=== PATIENT | female | born 1980 | race Caucasian/White ===

== ENCOUNTER 2017-06-13 14:41 | Emergency (ER) | payer OTHER, BC ==
--- NOTE | 2017-06-13 15:04 | Emergency Department Record ---
History of Present Illness - General Chief complaint: Female Urogenital Problem Stated complaint: CRAMPING/VAGINAL BLEEDING Source: Patient, Family () - History of Present Illness Initial comments: The patient had a uterine ablation last December with Dr. Gutierrez. Since then she has not menstruated. 06-11-17 she began having menstrual cramping. 06-12-17 she began to have a "light day" amount of very dark vaginal bleeding, almost black. She took motrin around 11 a.m. and the pain decreased from 8-9/10 down to 2/ 10 which it is now. She states she has never been anemic from this, and has not needed iron for the past 2 years. She is quite comfortable currently. She denies f,c,n,v,d,flank pain, or other emergent problems. MD Complaint: Vaginal bleeding - Related Data Home Medications Medication Instructions Recorded Confirmed Last Taken Apremilast [Otezla] 30 mg PO ASDIR 06/13/17 06/13/17 06/13/17 Duloxetine HCl [Cymbalta] 30 mg PO DAILY 06/13/17 06/13/17 06/13/17 Glipizide [Glipizide ER] 2.5 mg PO ASDIR 06/13/17 06/13/17 06/13/17 Metformin HCl [Metformin HCl ER] 1,000 mg PO BID 06/13/17 06/13/17 06/13/17 Allergies Allergy/AdvReac Type Severity Reaction Status Date / Time cephalexin [From Keflex] Allergy PT UNSURE Verified 06/13/17 14:58 OF REACTION shellfish derived Allergy PT UNSURE Verified 06/13/17 14:58 OF REACTION cefdinir AdvReac DIARRHEA Verified 06/13/17 15:01 Review of Systems Reviewed: No additional complaints except as noted below Constitutional: Reports: As per HPI. Denies: Chills, Fever, Malaise, Night sweats, Weakness, Weight change Eyes: Reports: As per HPI. Denies: Eye discharge, Eye pain, Photophobia, Vision change ENT: Reports: As per HPI. Denies: Congestion, Dental pain, Ear pain, Epistaxis , Hearing loss, Throat pain Respiratory: Reports: As per HPI. Denies: Cough, Dyspnea, Hemoptysis, Stridor, Wheezes Cardiovascular: Reports: As per HPI. Denies: Arrhythmia, Chest pain, Dyspnea on exertion, Edema, Murmurs, Orthopnea, Palpitations, Paroxysmal nocturnal dyspnea, Rheumatic Fever, Syncope Endocrine: Reports: As per HPI. Denies: Fatigue, Heat or cold intolerance, Polydipsia, Polyuria Gastrointestinal: Reports: As per HPI. Denies: Abdominal pain, Constipation, Diarrhea, Hematemesis, Hematochezia, Melena, Nausea, Vomiting Genitourinary: Reports: As per HPI. Denies: Abnormal menses, Discharge, Dyspareunia, Dysuria, Frequency, Hematuria, Incontinence, Retention, Urgency Musculoskeletal: Reports: As per HPI. Denies: Arthralgia, Back pain, Gout, Joint swelling, Myalgia, Neck pain Skin: Reports: As per HPI. Denies: Bruising, Change in color, Change in hair/ nails, Lesions, Pruritus, Rash Neurological: Reports: As per HPI. Denies: Abnormal gait, Confusion, Headache, Numbness, Paresthesias, Seizure, Tingling, Tremors, Vertigo, Weakness Psychiatric: Reports: As per HPI. Denies: Anxiety, Auditory hallucinations, Depression, Homicidal thoughts, Suicidal thoughts, Visual hallucinations Hematological/Lymphatic: Reports: As per HPI. Denies: Anemia, Blood Clots, Easy bleeding, Easy bruising, Swollen glands Physical Exam - General General Appearance: Alert, Oriented x3, Cooperative, No acute distress - Head Head exam: Normal inspection - Eye Eye exam: Normal appearance, PERRL Pupils: Normal accommodation - ENT ENT exam: Normal exam, Mucous membranes moist, Normal external ear exam, Normal orophraynx, TM's normal bilaterally Ear exam: Normal external inspection. negative: External canal tenderness Nasal Exam: Normal inspection. negative: Discharge, Sinus tenderness Mouth exam: Normal external inspection, Tongue normal Teeth exam: Normal inspection. negative: Dental caries Throat exam: Normal inspection. negative: Tonsillar erythema, Tonsillar exudate - Neck Neck exam: Normal inspection, Full ROM. negative: Tenderness - Respiratory Respiratory exam: Normal lung sounds bilaterally. negative: Respiratory distress - Cardiovascular Cardiovascular Exam: Normal rhythm, Normal heart sounds, Tachycardia - GI/Abdominal GI/Abdominal exam: Soft, Normal bowel sounds, Other (uncomfortable suprpubic region on palpation, "crampy"). negative: Tenderness - Rectal Rectal exam: Deferred - exam: Deferred - Extremities Extremities exam: Normal inspection, Full ROM, Normal capillary refill. negative: Tenderness - Back Back exam: Reports: Normal inspection, Full ROM. Denies: Muscle spasm, Rash noted, Tenderness - Neurological Neurological exam: Alert, Normal gait, Oriented X3, Reflexes normal - Psychiatric Psychiatric exam: Normal affect, Normal mood - Skin Skin exam: Dry, Intact, Normal color, Warm Course - Reevaluation(s) Reevaluation #1: Stil feeling much better after fluids. Ready for DC. 06/13/17 16:28 Medical Decision Making - Data Complexity MDM Data: Labs Ordered and/or Reviewed - Lab Data Result diagrams: 06/13/17 15:30 06/13/17 15:30 Disposition Disposition: Discharge Clinical Impression: Dysmenorrhea Disposition: Home, Self-Care Condition: (1) Good Instructions: Dysmenorrhea (ED) Additional Instructions: Home rest. Push fluids. Tylenol or ibuprofen as needed as directed for pain. Follow up Thursday with Dr. Gutierrez in office. Quality - Quality Measures Quality Measures: N/A - Blood Pressure Screening Does Patient Have Any of the Following: No Blood Pressure Classification: Hypertensive Reading Systolic Measurement: 133 Diastolic Measurement: 90 Screening for High Blood Pressure: < Pre-Hypertensive BP, F/U Documented > [ [id number]] Pre-Hypertensive Follow-up Interventions: Follow-up with rescreen every year.
[2017-06-13 15:19] LABS: URINE APPEARANCE SL CLOUDY; URINE BILIRUBIN NEGATIVE (NEGATIVE); URINE BLOOD LARGE (NEGATIVE); URINE COLOR YELLOW; URINE GLUCOSE (UA) NEGATIVE (NEGATIVE); URINE KETONE NEGATIVE (NEGATIVE); URINE LEUKOCYTE ESTERASE NEGATIVE (NEGATIVE); URINE NITRITE NEGATIVE (NEGATIVE); URINE PROTEIN TRACE (NEGATIVE); URINE UROBILINOGEN 0.2 E.U./dL (0.20 - 1.00)
[2017-06-13] MEDS ORDERED: 0.9 % SODIUM CHLORIDE 1,000 ML BAG IV ONE (15:21)
[2017-06-13 15:29] LABS: URINE BACTERIA 1+
[2017-06-13 15:30] LABS: HCG,QUALITATIVE URINE NEGATIVE (NEGATIVE)
[2017-06-13 15:44] LABS: BASO % 0.1 % (0-6); EOS % 4.7 % (0-6); GRAN % 61.9 % (47-80); HEMATOCRIT 39.2 % (35.0-47.0); LYMPH % 25.6 % (16-45); MEAN CELL VOLUME 81.3 fl (81-97); MEAN CORPUSCULAR HGB CONC 33.2 g/dl (32-36); MEAN PLATELET VOLUME 8.5 fl (7.4-10.4); MONO % 7.7 % (0-9); PLATELET COUNT 313 K/uL (130-400); RED BLOOD COUNT 4.82 M/uL (3.80-5.40); RED CELL DISTRIBUTION WIDTH 13.4 % (11.5-14.5); WHITE BLOOD COUNT W/O DIFF 6.8 K/uL (4.2-12.2)
[2017-06-13 15:54] LABS: BLOOD UREA NITROGEN 10 mg/dL (6-20); CREATININE 0.7 mg/dL (0.5-0.9); EST GLOMERULAR FILTRATION RATE > 60 mL/min; GLUCOSE,RANDOM 147 mg/dL (74-109)
== END 2017-06-13 16:46 | disposition home or self-care (01) ==
LOC: ER 14:41
DX: N94.6 Dysmenorrhea, unspecified (principal)
CPT/HCPCS: 80048; 81001; 81025; 85025; 99284; J7030